=== PATIENT | female | born 1980 | race Two or more races ===

== ENCOUNTER 2017-11-29 13:39 | Emergency (ER) | payer MEDICAID ==
[~2017-11-29] VITALS: Ht 154.9 cm; Wt 68.0 kg
[~2017-11-29 13:39] MED LIST: DOXYCYCLINE MO100 MG ORAL; IMITREX6 MG/0.5 M SQ; SUMATRIPTAN SUC25 MG PO; TOPIRAMATE25 MG PO; VASOTEC5 MG PO
[2017-11-29] MEDS ORDERED: Morphine Sulfate 4mg/ml Inj IM ONE (15:15)
[2017-11-29] MEDS ORDERED: ZOFRAN ODT4 MG ORAL (15:52)
--- NOTE | 2017-11-29 15:52 | Emergency Room Report ---
History of Present Illness General Chief Complaint: Headache Source: Patient Present Illness HPI 37 yo female patient presents to ED complaining of migraine for the past 6 days. Patient states this feels similar to migraines in the past. Patient reports history of migraine treated with migraine medications at home; patient states she took medications with no relief of acute symptoms. Patient states she came to the ER previously for relief of symptoms "to break the cycle of pain " with stronger pain meds and is looking for similar treatment today. Patient reports history of diabetes, seizure, and ovarian cancer. Patient states she has multiple menses a month secondary to ovarian cancer causing "fluctuating hormone levels" that causes her to have migraines. Patient denies fever, vomiting, vision changes. Allergies: Coded Allergies: METOCLOPRAMIDE (Verified Allergy, Unknown, 11/29/17) PROCHLORPERAZINE (Verified Allergy, Unknown, 11/29/17) VENOM-HONEY BEE (Verified Allergy, Unknown, sob, 11/29/17) Uncoded Allergies: PHENRGAN (Allergy, Unknown, 11/29/17) TORADOL (Allergy, Unknown, 11/29/17) VISTARIL (Allergy, Unknown, 11/29/17) avacado (Allergy, Unknown, hives, 11/29/17) chilli (Allergy, Unknown, hives, 11/29/17) Patient History Past Medical History: see triage record Social History: Denies: smoking, alcohol use, drug use Last Menstrual Period: on period Reviewed Nursing Documentation: PMH: Agreed, PSxH: Agreed Nursing Documentation-PMH Past Medical History: No History, Except For Hx Hypertension: Yes Hx Diabetes: Yes Hx Cancer: Yes - Uterus and ovary Hx Neurological Problems: Yes - MIGRAINE Hx Seizures: Yes Review of Systems All Other Systems: negative except mentioned in HPI Physical Exam Vital Signs Date Time Temp Pulse Resp B/P (MAP) Pulse Ox O2 Delivery O2 Flow Rate FiO2 11/29/17 14:02 99.0 99 16 121/89 97 Room Air Sp02 EP Interpretation: reviewed, normal General Appearance: no apparent distress, alert, GCS 15, non-toxic Head: normocephalic, atraumatic Eyes: bilateral eye normal inspection, bilateral eye PERRL, bilateral eye EOMI ENT: hearing grossly normal, normal pharynx, no angioedema, normal voice, uvula midline Neck: full range of motion, supple/symm/no masses Respiratory: chest non-tender, lungs clear, normal breath sounds, speaking full sentences Cardiovascular #1: regular rate, rhythm, no edema Musculoskeletal: back normal, gait/station normal, normal range of motion, non- tender Neurologic: alert, oriented x3, responsive, paperhanger apprentice III-XII nml as tested, motor strength/tone normal, sensory intact, speech normal Psychiatric: judgement/insight normal, mood/affect normal Skin: normal color, no rash, warm/dry, well hydrated Medical Decision Making PA Attestation Dr. Dillard is my supervising Physician whom patient management has been discussed with. Diagnostic Impression: Primary Impression: Migraine ER Course Pt. presents to the ED c/o migraine. Ddx considered but are not limited to migraine ERAZO, tension ERAZO, cluster ERAZO, SAH. Vital signs: are WNL, pt. is afebrile. ORDERS: none required at this time, the diagnosis is clinical ED INTERVENTIONS: -Zofran -Morphine for pain DISCHARGE: At this time pt. is stable for d/c to home. Will provide printed patient care instructions, and any necessary prescriptions. Care plan and follow up instructions have been discussed with the patient prior to discharge Last Vital Signs Date Time Temp Pulse Resp B/P (MAP) Pulse Ox O2 Delivery O2 Flow Rate FiO2 11/29/17 14:02 99.0 99 16 121/89 97 Room Air Disposition: HOME, SELF-CARE Condition: Stable Scripts Ondansetron Odt* (ZOFRAN ODT*) 4 Mg Tab.rapdis 4 MG ORAL Q8H Y for Nausea & Vomiting for 10 Days, #30 TAB 0 Refills Prov: Clayton Elder 11/29/17 Patient Instructions: Migraine Headache Additional Instructions: Followup with primary care provider in 3 -5 days. Take medications as directed. Patient questions asked and answered. ER precautions given, patient instructed to return to ER immediately for any new or worsening of symptoms. Clayton Elder Nov 29, 2017 15:52
[2017-11-29 16:19] VITALS: BP 124/88
== END 2017-11-29 16:30 | disposition home or self-care (01) ==
LOC: EMR 14:30
DX: G43.909 Migraine, unspecified, not intractable, without status migrainosus (principal); E11.9 Type 2 diabetes mellitus without complications; I10 Essential (primary) hypertension; Z88.8 Allergy status to other drugs, medicaments and biological substances; Z91.018 Allergy to other foods; Z88.6 Allergy status to analgesic agent
CPT/HCPCS: 96372; 99284; J2270

== ENCOUNTER 2017-12-29 15:56 | Emergency (ER) | payer MEDICAID ==
[~2017-12-29] VITALS: Ht 152.4 cm; Wt 77.1 kg
[~2017-12-29 15:56] MED LIST changes: +ZOFRAN ODT4 MG ORAL
[2017-12-29 16:27] VITALS: BP 151/102
[2017-12-29] MEDS ORDERED: Ketorolac 30mg Inj IV ONE (17:00)
[2017-12-29] MEDS ORDERED: Acetaminophen 500mg (ES) tab ORAL ONE (17:00)
[2017-12-29 17:20] LABS: EOSINOPHILS % (AUTO) 0.6 % (0.0-3.0); HEMOGLOBIN 14.3 G/DL (12.0-16.0); LYMPHOCYTES % (AUTO) 21.5 % (20.0-45.0); MEAN CORPUSCULAR VOLUME 86 FL (80-99); MONOCYTES % (AUTO) 8.2 % (1.0-10.0); NEUTROPHILS % (AUTO) 68.8 % (45.0-75.0); PLATELET COUNT 442 K/UL (150-450); RED BLOOD COUNT 5.25 M/UL (4.20-5.40); RED CELL DISTRIBUTION WIDTH 14.7 % (11.6-14.8)
[2017-12-29 17:28] LABS: ANION GAP 11 mmol/L (5-15); BLOOD UREA NITROGEN 11 mg/dL (7-18); CALCIUM 9.7 MG/DL (8.5-10.1); CARBON DIOXIDE 26 MMOL/L (21-32); CHLORIDE 101 MMOL/L (98-107); CREATININE 0.6 MG/DL (0.55-1.30); POTASSIUM 3.7 MMOL/L (3.5-5.1); SODIUM 138 MMOL/L (136-145)
[2017-12-29 17:32] LABS: ALANINE AMINOTRANSFERASE 29 U/L (12-78); ALBUMIN 4.2 G/DL (3.4-5.0); ALKALINE PHOSPHATASE 109 U/L (46-116); ASPARTATE AMINO TRANSFERASE 24 U/L (15-37); BILIRUBIN,TOTAL 0.7 MG/DL (0.2-1.0)
--- NOTE | 2017-12-29 17:44 | Emergency Room Report ---
History of Present Illness General Chief Complaint: Abdominal Pain Source: Patient Present Illness HPI 37-year-old female, history of left-sided inguinal hernia, presenting with fall and abdominal pain. Patient states that she was in the shower, slipped and fell and hit the side. Not associated. Now complaining of left-sided abdominal pain. States that she saw her hernia come out and a big bulge. States that it has been very painful ever since. Has had nausea and vomiting, more than 3 episodes nonbilious nonbloody. Had a normal bowel movement this morning. Allergies: Coded Allergies: METOCLOPRAMIDE (Verified Allergy, Unknown, 11/29/17) PROCHLORPERAZINE (Verified Allergy, Unknown, 11/29/17) VENOM-HONEY BEE (Verified Allergy, Unknown, sob, 11/29/17) Uncoded Allergies: PHENRGAN (Allergy, Unknown, 11/29/17) TORADOL (Allergy, Unknown, 11/29/17) VISTARIL (Allergy, Unknown, 11/29/17) avacado (Allergy, Unknown, hives, 11/29/17) chilli (Allergy, Unknown, hives, 11/29/17) Patient History Past Medical History: see triage record Past Surgical History: none Pertinent Family History: none Reviewed Nursing Documentation: PMH: Agreed, PSxH: Agreed Nursing Documentation-PMH Past Medical History: No History, Except For Hx Hypertension: Yes Hx Diabetes: Yes 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 Hx Neurological Problems: Yes Hx Seizures: Yes Review of Systems All Other Systems: negative except mentioned in HPI Physical Exam Vital Signs Date Time Temp Pulse Resp B/P (MAP) Pulse Ox O2 Delivery O2 Flow Rate FiO2 12/29/17 16:10 98.3 115 20 151/102 94 Room Air 98.2 Sp02 EP Interpretation: reviewed, normal General Appearance: alert, GCS 15, non-toxic, mild distress Head: normocephalic, atraumatic Eyes: bilateral eye normal inspection, bilateral eye PERRL, bilateral eye EOMI ENT: normal ENT inspection, normal pharynx, normal voice, moist mucus membranes Neck: normal inspection, full range of motion, supple Respiratory: normal inspection, lungs clear, normal breath sounds, no respiratory distress, no retraction, no wheezing, speaking full sentences, chest symmetrical Cardiovascular #1: normal inspection, regular rate, rhythm, no edema, normal capillary refill Cardiovascular #2: 2+ radial (R), 2+ radial (L) Gastrointestinal: other - MILD LLQ TENDERNESS, no guarding, no bulge/hernia palpated Musculoskeletal: normal inspection, back normal, normal range of motion, non- tender Neurologic: normal inspection, alert, oriented x3, responsive, motor strength/ tone normal, sensory intact, normal gait, speech normal Psychiatric: normal inspection, judgement/insight normal, memory normal Skin: normal inspection, normal color, no rash, warm/dry, well hydrated, normal turgor Medical Decision Making Diagnostic Impression: Primary Impression: Abdominal pain ER Course 37-year-old female with left-sided abdominal pain after fall Differential Diagnosis: Traumatic injury versus diverticulitis, SBO, UTI/pyelo Ovarian pathology physical exam has no signs of any hernia strangulation Plan: Basic labs, ua, pain control, IVF CT abdopelvis ER course: Patient has remained stable during ED stay. Pain improved. Repeat abdominal exam is nontender. no findings on CT Disposition: Patient is to be discharged to home. Patient is instructed to follow up with their primary care doctor within 5 days. Strict return precautions discussed with patient such as fever, chills, worsening/severe abdominal pain, nausea, vomiting, black or bloody stools, which may indicate severe illness. Patient verbalizes understanding and agrees with plan. Please note that this Emergency Department Report was dictated using [email or web address] administrator technology software, occasionally this can lead to erroneous entry secondary to interpretation by the dictation equipment Laboratory Tests Test 12/29/17 16:54 12/29/17 18:06 White Blood Count 8.0 K/UL (4.8-10.8) Red Blood Count 5.25 M/UL (4.20-5.40) Hemoglobin 14.3 G/DL (12.0-16.0) Hematocrit 45.0 % (37.0-47.0) Mean Corpuscular Volume 86 FL (80-99) Mean Corpuscular Hemoglobin 27.2 PG (27.0-31.0) Mean Corpuscular Hemoglobin Concent 31.7 G/DL (32.0-36.0) L Red Cell Distribution Width 14.7 % (11.6-14.8) Platelet Count 442 K/UL (150-450) Mean Platelet Volume 6.3 FL (6.5-10.1) L Neutrophils (%) (Auto) 68.8 % (45.0-75.0) Lymphocytes (%) (Auto) 21.5 % (20.0-45.0) Monocytes (%) (Auto) 8.2 % (1.0-10.0) Eosinophils (%) (Auto) 0.6 % (0.0-3.0) Basophils (%) (Auto) 1.0 % (0.0-2.0) Sodium Level 138 MMOL/L (136-145) Potassium Level 3.7 MMOL/L (3.5-5.1) Chloride Level 101 MMOL/L (98-107) Carbon Dioxide Level 26 MMOL/L (21-32) Anion Gap 11 mmol/L (5-15) Blood Urea Nitrogen 11 mg/dL (7-18) Creatinine 0.6 MG/DL (0.55-1.30) Estimate Glomerular Filtration Rate > 60 mL/min (>60) Glucose Level 101 MG/DL (74-106) Calcium Level 9.7 MG/DL (8.5-10.1) Total Bilirubin 0.7 MG/DL (0.2-1.0) Aspartate Amino Transferase (AST) 24 U/L (15-37) Alanine Aminotransferase (ALT) 29 U/L (12-78) Alkaline Phosphatase 109 U/L (46-116) Total Protein 8.6 G/DL (6.4-8.2) H Albumin 4.2 G/DL (3.4-5.0) Globulin 4.4 g/dL Albumin/Globulin Ratio 1.0 (1.0-2.7) Lipase 155 U/L (73-393) Urine Color Yellow Urine Appearance Cloudy Urine pH 5 (4.5-8.0) Urine Specific [place] 1.030 (1.005-1.035) Urine Protein 1+ (NEGATIVE) H Urine Glucose (UA) Negative (NEGATIVE) Urine Ketones 1+ (NEGATIVE) H Urine Occult Blood 1+ (NEGATIVE) H Urine Nitrite Negative (NEGATIVE) Urine Bilirubin Negative (NEGATIVE) Urine Urobilinogen 1 MG/DL (0.0-1.0) H Urine Leukocyte Esterase 3+ (NEGATIVE) H Urine RBC 5-10 /HPF (0 - 2) H Urine WBC 2-4 /HPF (0 - 2) Urine Squamous Epithelial Cells Many /LPF (NONE/OCC) H Urine Amorphous Sediment Few /LPF (NONE) H Urine Bacteria Few /HPF (NONE) Urine HCG, Qualitative Negative CT/MRI/US Diagnostic Results CT/MRI/US Diagnostic Results : Imaging Test Ordered: CT abdo pelvis Impression No acute findings Cholecystectomy clips. Hernia repair clips in anterior midline pelvis. Anteverted uterus is unremarkable. Appendix is not definitively visualized. No pericecal inflammatory change Minimal colonic diverticulosis. 8mm cysts of right kidney. Likely 1.6 cm nabothian cyst. Last Vital Signs Date Time Temp Pulse Resp B/P (MAP) Pulse Ox O2 Delivery O2 Flow Rate FiO2 12/29/17 17:06 98.2 12/29/17 16:27 20 151/102 94 Room Air 12/29/17 16:10 115 Disposition: HOME, SELF-CARE Condition: Improved Referrals: [facility],REFERRING (PCP) Patient Instructions: Abdominal Pain, Adult Nichelle Dillard M.D. Dec 29, 2017 17:44
[2017-12-29 18:25] LABS: APPEARANCE,URINE CLOUDY; BILIRUBIN, URINE NEGATIVE (NEGATIVE); GLUCOSE, URINE (UA) NEGATIVE (NEGATIVE); KETONES,URINE 1+ (NEGATIVE); LEUKOCYTE ESTERASE ,URINE 3+ (NEGATIVE); NITRITE,URINE NEGATIVE (NEGATIVE); PH,URINE 5 (4.5-8.0); PROTEIN,URINE 1+ (NEGATIVE); UROBILINOGEN,URINE 1 MG/DL (0.0-1.0)
[2017-12-29 18:27] LABS: COLOR,URINE YELLOW
[2017-12-29 19:30] VITALS: BP 142/90
[2017-12-29] MEDS ORDERED: Methocarbamol 750mg tab ORAL ONE (20:00)
[2017-12-29] MEDS ORDERED: DiphenhydrAMINE 50mg/ml Inj IVP ONE (20:00)
[2017-12-29 20:10] VITALS: BP 142/90
--- NOTE | 2017-12-30 09:46 | Diagnostic Imaging Report ---
Indication: Abdominal pain Technique: Continuous helical transaxial imaging of the abdomen and pelvis was obtained from the lung bases to the pubic symphysis during intravenous contrast administration. Coronal 2-D reformats were also obtained. Study obtained in a Siemens sensation [address] Automatic Exposure Control was utilized. Total Dose length Product (DLP): 1096.[address] Dose Index Volume (CTDIvol): 19.51 mGy Comparison: None Findings: There is breathing motion artifact which limits evaluation. Cholecystectomy noted. There is a right renal cyst but a centimeter in size. There is a mesh in the anterior abdominal wall indicative of prior hernia repair. There is a cystic focus centered about the cervix. Diverticula noted in the colon. Mild to moderate stool burden noted. IMPRESSION: No acute findings appreciated. Status post anterior abdominal hernia repair with a mesh noted. Status post cholecystectomy. Right renal cyst Mild to moderate stool burden Cervical nabothian cyst. Breathing motion artifact. [facility] has communicated the preliminary results to the Emergency Department. Their findings are largely concordant with this report. The CT scanner at [facility] is accredited by the [employer] and the scans are performed using dose optimization techniques as appropriate to a performed exam including Automatic Exposure control.
== END 2017-12-29 20:10 | disposition home or self-care (01) ==
LOC: EMR 16:10
DX: R10.9 Unspecified abdominal pain (principal); I10 Essential (primary) hypertension; E11.9 Type 2 diabetes mellitus without complications; Z85.43 Personal history of malignant neoplasm of ovary; Z85.42 Personal history of malignant neoplasm of other parts of uterus; K40.90 Unilateral inguinal hernia, without obstruction or gangrene, not specified as recurrent; Z88.8 Allergy status to other drugs, medicaments and biological substances; Z88.6 Allergy status to analgesic agent; Z91.018 Allergy to other foods
CPT/HCPCS: 36415; 74177; 80053; 81003; 81025; 83690; 85025; 96374; 96375; 99284; J1200; J2405; Q9967